=== PATIENT | male | born 1940 | race Caucasian/White ===

== ENCOUNTER 2016-10-01 18:35 | Observation (INO) | payer MEDICARE, BC ==
[~2016-10-01] VITALS: Ht 189.2 cm; Wt 126.1 kg
--- NOTE | ~2016-10-01 | OP ---
PATIENT NAME: AHSLY DUGAN MEDICAL RECORD: [id number] :38 LOCATION:D. D.2121 ADMISSION DATE:10/01/16 SURGEON: DELILAH EL MD DATE OF OPERATION: 10/03/2016 PROCEDURES: 1. Left heart catheterization. 2. Selective coronary angiography. 3. Left ventriculogram. INDICATION: Elevated troponin and chest pain. Initially planned for cardiac catheterization yesterday; however, the patient did not think he could lie flat with his CPAP and anesthesia per anesthesia, the patient was able to lie flat and tolerate the cardiac catheterization. FINDINGS: Left ventriculogram was performed in the standard 30-degree BEJARANO view reveals good cardiac wall motion throughout all segments. Overall ejection fraction estimated at 55%. SELECTIVE CORONARY ANGIOGRAPHY: Left main, left anterior descending, left circumflex, right coronary are smooth-walled vessels with no angiographic evidence of coronary artery disease. OVERALL IMPRESSION: 1. No angiographic evidence of coronary artery disease. 2. Normal LV function. Most likely, his symptomatology is secondary to recurrent pulmonary emboli. We will center medical management on treatment of the pulmonary emboli. TRANSINT:[id number] Voice Confirmation ID: [id number] DOCUMENT ID: [id number] DELILAH EL MD CC: [id number] DICTATION DATE: 10/03/16 1312 PATROL DRIVER: 10/03/162022 DIS IN 10/03/16 [facility] [address] [place] [address]
--- NOTE | ~2016-10-01 | DS ---
PATIENT:ASHLY ROBLERO :36 MEDICAL RECORD: [id number] DISCHARGE SUMMARY ADMISSION DATE: 10/01/16 DISCHARGE DATE: 10/03/16 DATE OF SERVICE: 10/03/2016 DIAGNOSES: 1. Chest pain. 2. Increased troponin. 3. History of pulmonary embolus. 4. Shortness of breath, dyspnea on exertion secondary to pulmonary embolus. 5. Peripheral edema secondary to pulmonary hypertension secondary to pulmonary embolus. 6. Hypertension. HOSPITAL COURSE: Mr. Roblero presents with increased shortness of breath. He has a history of saddle embolus with significant pulmonary embolus approximately a year ago. Since then, he has been very short of breath. He did have worsening of his shortness of breath. His troponin was mildly elevated. I send him here for cardiac evaluation. We planned cardiac catheterization; however, he cannot lay flat, not even elevated secondary to his pulmonary embolus and shortness of breath. He is on a CPAP machine, even with a CPAP machine, he was unable to lie flat for CT angio or for cardiac catheterization. At this time, we will treat him empirically. We will continue his Eliquis. Continue his home meds for the pulmonary embolus and plan for further cardiac evaluation as an outpatient, but due to his inability to lie flat, that will only be medical management. TRANSINT:[id number] Voice Confirmation ID: [id number] DOCUMENT ID: [id number] DELILAH EL MD CC: [id number] DICTATION DATE: 10/03/16816 BEHAVIORAL HEALTH COUNSELOR: 10/04/16 0151 DIS IN 10/03/16 [id number] [place] [address]
--- NOTE | ~2016-10-01 | HEMODYNAMI ---
PATIENT:ASHLY DUGAN MEDICAL RECORD: [id number] : 38 [facility] D[id number] ADMISSION DATE: 10/01/16 Generatedon:10/03/201613:18 Patient name: ASHLY DUGAN Patient #: [id number] : 1940 Date of study: 10/03/2016 Page: Of Hemodynamic Procedure Report Patient Data Patient Demographics Procedure consent was obtained First Name: ASHLY Gender: Male Last Name: KAILEE : 1940 Middle Initial: W Age: 75 year(s) Patient #: [id number] Race: SSN: [id number] Additional ID: [id number] Contact details Address: [address] [address] State: [place] City: [place] Zip code: [address] Past Medical History Allergies: No known allergies Admission Admission Data Admission Date: 10/01/2016 Admission Time: 18:35 Arrival Date: 10/01/2016 Arrival Time: 18:35 Admit Source: Other Insurance Payor: Medicare Room #: D.2122 Weight (lbs.): 275 Weight (kg.): 124.74 Lab Results Lab Result Date: 10/03/2016 Lab Result Time: 0:00 Biochemistry Name Units Result Min Max BUN mg/dl 31 --(----)-* 7 18 Creatinine mg/dl 1 --(--*-)-- 0.6 1.3 CBC Name Units Result Min Max Hemoglobin g/dl 14.2 --(*---)-- 13.5 17.5 Procedure Procedure Types Cath Procedure Diagnostic Procedure C [facility] w/Coronaries Miscellaneous Procedures Moderate Sedation up to 15 minutes Procedure Description Procedure Date Procedure Date: 10/03/2016 Procedure Start Time: 12:58 Procedure End Time: 13:11 Procedure Staff Name Function Calixto Mendes MD Performing Physician Brenda Capone RT Scrub Sarah Smith RN Nurse Maribel Thomson RT Monitor Procedure Data Cath Procedure Fluoroscopy Diagnostic fluoroscopy Total fluoroscopy Time: 2.6 time: 2.6 min min Diagnostic fluoroscopy Total fluoroscopy dose: 677 dose: 677 mGy mGy Contrast Material Contrast Material Type Amount (ml) Isovue 370 0 Entry Location Entry Primary Successful Side Size Upsize Upsize Entry Closure Succes sful Closure Location (Fr) 1 (Fr) 2 (Fr) Remarks Device Remarks Radial Right 6 Fr artery Short Femoral Right 5 Fr Exoseal artery Estimated blood loss: 5 ml Diagnostic catheters Device Type Used For End Catheter Placement Terumo Optitorque 5Fr Multi-vessel [place]els[place] 4.5 catheter Angiography Procedure Complications No complications Procedure Medications Medication Administration Route Dosage Oxygen Lidocaine 2% added to field 20 Heparin Flush Bag added to field 2 bags (1000units/500ml NS) 0.9% NaCl I.V. 50 ml/hr Refer to Anesthesia Notes for Sedation Medications Radial Cocktail I.A. 1 syringe (Verapomil 2mg/Nitro 400mcg/Heparin 1500units) Hemodynamics Rest HGB: 14.2 (g/dl) Heart Rate: 60 (bpm) Pressure Samples Time Site Value (mmHg) Purpose Heart Use Rate(bpm) 13:03 LV 99/31,32 Snapshot 61 Snapshots Pre Cath Intra NCS Post Cath Vital Signs Time Heart Resp SPO2 etCO2 [id number] NIBP (mmHg) Rhythm Pain Sedatio n Rate (ipm) (%) (mmHg) (mmHg) Status Level (bpm) 12:50:11 60 16 97 0 0 No Cuff NSR 0 (11) 9(A) , No pain 12:54:14 60 15 95 0 0 161/138(153) NSR 0 (11) 9(A) , No pain 12:58:24 63 19 97 0 0 145/125(136) NSR 0 (11) 9(A) , No pain 13:02:34 62 25 100 0 0 119/79(98) NSR 0 (11) 8(A) , No pain 13:06:38 60 20 97 0 0 113/68(85) NSR 0 (11) 7(A) , No pain 13:10:35 60 19 100 0 0 128/79(97) NSR 0 (11) 8(A) , No pain 13:13:56 60 19 99 0 0 133/84(95) NSR 0 (11) 9(A) , No pain Medications Time Medication Route Dose Verified Delivered Reason Notes Effectiveness by by 12:51:23 Oxygen cpap Calixto Smith Per Vaughn Smith RN physician 12:54:30 Lidocaine 2% added 20ml Calixto De Luna for local to vial Vaughn Mendes MD anesthetic field 12:54:37 Heparin Flush added 2 bags Calixto De Luna used for Bag to Vaughn Mendes MD procedure (1000units/500ml field NS) 12:54:59 0.9% NaCl I.V. 50 Calixto Smith Per ml/hr Vaughn Smith RN physician 12:55:06 Refer to Calixto Smith Anesthesia Notes Vaughn Smith RN for Sedation Medications 12:59:00 Radial Cocktail I.A. 1 Calixto De Luna for (Verapomil syringe Vaughn Mendes MD vasodilation 2mg/Nitro 400mcg/Heparin 1500units) Procedure Log Time Note 12:16:08 Lab Result : BUN 31 mg/dl 12:16:08 Lab Result : Hemoglobin 14.2 g/dl 12:16:08 Lab Result : Creatinine 1 mg/dl 12:16:20 Diagnostic Cath Status : Elective 12:16:40 Sarah Smith RN sent for patient. Start room use. 12:16:41 Time tracking: Regular hours 12:17:41 Plan of Care:Hemodynamics will remain stable., Cardiac rhythm will remain stable., Comfort level will be maintained., Respiratory function will remain adequate., Patient/ family verbilizes understanding of procedure., Procedure tolerated without complication., Recovers from procedure without complications.. 12:18:37 Informed consent obtained and on chart 12:30:24 Patient received from Med II to CCL 1 Alert and oriented. Tansferred to table in Supine position. 12:30:25 Warm blankets applied, and leela hugger turned on for patient comfort. 12:30:26 Correct patient and procedure confirmed by team. 12:30:27 ECG and BP/O2 sat monitors applied to patient. 12:38:57 H&P Date Dictated: 10/01/2016 Within 30 days and on chart., H&P Addendum completed by physician on day of procedure. (MUST COMPLETE FOR ALL OUTPATIENTS). 12:39:00 Pre-procedure instructions explained to patient. 12:39:04 Family in patients room. 12:39:07 Patient NPO since Midnight. 12:39:15 Patient allergic to No known allergies 12:39:19 Is the patient allergic to Iodine/contrast media? No. 12:40:42 Sleep apnea? Yes 12:41:08 Airway obstruction? Yes Asthma, COPD 12:43:38 Patient diabetic? No. 12:43:42 Previous problem with sedation/anesthesia? Yes ? 12:43:45 Previous problem with sedation/anesthesia? No ? 12:43:47 Snore? Yes 12:44:05 IV started by Sarah Smith RN inleft hand with a 20 gauge IV catheter with 0.9% NaCl at KVO. 12:44:13 Lab results completed and on chart. 12:44:18 Right Radial & Right Groin area was prepped with chlora-prep and draped in sterile fashion 12:44:21 Sharps counted by scrub and verified by R.N. 12:44:23 Physician paged 12:49:21 Vital chart was started 12:51:23 Oxygen cpap was administered by Sarah Smith RN; Per physician; 12:53:04 Baseline sample Acquired. 12:54:30 Lidocaine 2% 20ml vial added to field was administered by Calixto Mendes MD; for local anesthetic; 12:54:37 Heparin Flush Bag (1000units/500ml NS) 2 bags added to field was administered by Calixto Mendes MD; used for procedure; 12:54:47 Physician arrived 12:54:47 --------ALL STOP TIME OUT------ 12:54:48 Final Timeout: patient, procedure, and site verified with staff and physician. All members of the team are in agreement. 12:54:49 Right Radial & Right Groin site verified by team. 12:54:58 Physical assessment completed. ASA score P 2 - A patient with mild systemic disease as per Calixto Mendes MD. 12:54:59 0.9% NaCl 50 ml/hr I.V. was administered by Sarah Smith RN; Per physician; 12:55:02 Sedation plan: IV Moderate Sedation Versed, Fentanyl 12:55:06 Refer to Anesthesia Notes for Sedation Medications was administered by Sarah Smith RN; ; 12:58:17 Use device set Radial Dx 12:58:18 Acist Syringe opened to sterile field. 12:58:18 Medline Cath Pack opened to sterile field. 12:58:19 Bag Decanter opened to sterile field. 12:58:19 Terumo 6Fr Slender Glidesheath opened to sterile field. 12:58:19 St Dylan 260cm J .035 wire opened to sterile field. 12:58:20 Acist Hand Control opened to sterile field. 12:58:20 Acist Manifold opened to sterile field. 12:58:21 Tegaderm 4 x 4 opened to sterile field. 12:58:21 MBrace Wrist Support opened to sterile field. 12:58:24 Procedure started. 12:58:24 Full Disclosure recording started 12:58:28 Local anesthetic to right radial artery with Lidocaine 2% by Calixto Mendes MD.INITIAL ACCESS ONLY 12:58:38 A 6 Fr Short sheath was inserted into the Right Radial artery 12:59:00 Radial Cocktail (Verapomil 2mg/Nitro 400mcg/Heparin 1500units) 1 syringe I.A. was administered by Calixto Mendes MD; for vasodilation; 12:59:59 A Terumo Optitorque 5Fr Nelsonia 4.5 catheter was advanced over the wire and used for Multi-vessel Angiography. 13:00:06 Zero performed for pressure channel P1 13:00:13 Zero performed for pressure channel P1 13:00:28 Zero performed for pressure channel P1 13:00:36 Zero performed for pressure channel P1 13:01:30 Zero performed for pressure channel P1 13:01:35 Zero performed for pressure channel P1 13:01:45 Zero performed for pressure channel P1 13:02:18 Local anesthetic to right femoral artery with Lidocaine 2% by Calixto Mendes MD.ADDITIONAL ACCESS 13:02:28 Terumo 5Fr [place] Sheath opened to sterile field. 13:02:39 Catheter removed. 13:02:54 A 5 Fr sheath was inserted into the Right Femoral artery 13:03:03 Diagnostic Infinity 5Fr Multipack catheter opened to sterile field. 13:03:10 5 Fr pig guide catheter was inserted over the wire 13:04:03 LV hemodynamics recorded. 13:04:05 LV gram done using BEJARANO 13:04:09 EF : 55 % 13:04:13 Catheter removed. 13:04:19 5 Fr jl 4 guide catheter was inserted over the wire 13:05:10 Catheter removed. unable to cannulate vessel. 13:06:07 Medtronic Launcher 6Fr JL 6.0 guide catheter opened to sterile field. 13:06:33 5 Fr jl6 guide catheter was inserted over the wire 13:07:20 LCA angiography performed. 13:07:23 Injector settings: Ml/sec: 3, Volume: 6, 13:07:34 Catheter removed. 13:07:47 5 Fr 3drc guide catheter was inserted over the wire 13:07:51 RCA angiography performed. 13:07:54 Injector settings: Ml/sec: 3, Volume: 6, 13:08:09 Catheter removed. 13:08:45 Cordis 5Fr Exoseal opened to sterile field. 13:08:58 Sheath removed intact; hemostasis achieved with Exoseal to the Right Femoral artery. 13:09:07 Procedure ended.(Physican Out) 13:09:44 Fluoroscopy time 02.60 minutes. 13:09:50 Fluoroscopy dose: 677 mGy 13:09:50 Flurop Dose total: 677 13:10:18 Contrast amount:Isovue 370 0ml. 13:10:20 Sharps counted by scrub and verified by R.N. 13:10:24 TR band inflated with 10cc of air. 13:10:26 Insertion/operative site no bleeding no hematoma. 13:10:30 Post-op/insertion site Right Femoral artery dressed using a 4 x 4 and Tegaderm. 13:10:32 Post right femoral artery:stable 13:10:35 Post Procedure Pulses reassessed and unchanged 13:10:39 Post procedure rhythm: unchanged. 13:10:42 Estimated blood loss: 5 ml 13:10:44 Post procedure instruction explained to patient.Patient verbalizes understanding. 13:10:45 Patient needs reinforcement of post procedure teaching. 13:11:03 Procedure type changed to Cath procedure, Diagnostic procedure, LHC, LHC w/Coronaries, Miscellaneous Procedures, Moderate Sedation up to 15 minutes 13:11:04 Procedure and supply charges have been captured, reviewed, submitted and are correct. 13:11:09 Procedure Complication : No complications 13:11:29 Vital chart was stopped 13:11:30 See physician's report for complete and final results. 13:11:38 Report given to [facility]. 13:11:41 Patient transfered to [facility] with Stretcher. 13:11:43 Procedure ended. 13:11:43 Full Disclosure recording stopped 13:11:46 End room use (Document Last) 13:12:37 Patient Weight : 275 kg Device Usage Item Name Manufacture Quantity Catalog Hospital Part Current Minimal Lot# / Number Charge Number Stock Stock Serial# Code Acist Acist 1 65844 851778 937475 452790 20 Syringe Medical Systems Inc Medline Cardinal 1 [id number] 616150 73171 278264 5 Cath Pack Health Bag Microtek 1 2001S 180217 57861 727352 5 Decanter Medical Inc. Terumo 6Fr Terumo 1 [id number] 833729 906772 070796 [address] St Dylan 1 617650 373571 075749 520630 30 260cm J .035 wire Acist Hand Acist 1 23889 588940 490856 768804 5 Control Medical Systems Inc Acist Acist 1 11853 536314 651859 782061 5 Manifold Medical Systems Inc Tegaderm 4 3M 1 1626W 326722 772941 603295 5 x 4 MBrace Advanced 1 140-0250-00 199700 00493 395773 5 Wrist Vascular Support Dynamics Terumo Terumo 1 64-9027 075455 751420 954666 5 Optitorque 5Fr Nelsonia 4.5 catheter Terumo 5Fr Terumo 1 BIY483 130632 186614 034335 40 [place] Sheath Diagnostic Cardinal 1 LD9463 587848 31372 030260 30 Infinity Health 5Fr Multipack catheter Medtronic Medtronic 1 [id number] 006302 75781 092275 0 Launcher 6Fr JL 6.0 guide catheter Cordis 5Fr Cardinal 1 EX500 579795 747502 899414 10 FindThatCourse Signature Audit [place] Stage Time Signature Unsigned Intra-Procedure 10/03/2016 Brenda Liborio 1:18:04 PM RT(R) Signatures Monitor : Maribel Thomson Signature : RT Date : Time : [facility] [address] [place] [address]
--- NOTE | ~2016-10-01 | CN ---
PATIENT NAME:ASHLY DUGAN MEDICAL RECORD: [id number] : 36 LOCATION:[facility] D.2122 ADMIT DATE: 10/01/16 ACCOUNT: [id number] CONSULTING PHYSICIAN: LEAH TORRES MD REFERRING PHYSICIAN: DELILAH MENDES MD DATE OF CONSULTATION: 10/03/2016 CONSULT REQUESTING PHYSICIAN: Delilah Mendes MD. REASON FOR CONSULTATION: Dyspnea and COPD. HISTORY OF PRESENT ILLNESS: Mr. Dugan is a 75-year-old gentleman, very well known to me. The patient was admitted with a left-sided chest pain. He was having shortness of breath with mild exertion. Denies any fever and chills, cough without sputum production. He also has chronic swelling of the lower extremities. The patient, in March, he had a saddle embolus, since then, he is on Eliquis. REVIEW OF SYSTEMS: Mainly in the history of present illness. PAST MEDICAL HISTORY: 1. COPD. 2. Obstructive sleep apnea. 3. Chronic dependent lower extremity edema. 4. Congestive heart failure, chronic diastolic dysfunction. 5. Hypertension. 6. History of coronary artery disease. 7. Obstructive sleep apnea. The patient is very compliant with his BiPAP. PAST SURGICAL HISTORY: None significant. ALLERGIES: There are no known drug allergies. PRESENT MEDICATIONS: He is on Eliquis. He is on albuterol/ipratropium nebulizer. His other medication is reviewed. PERSONAL AND SOCIAL HISTORY: The patient is an ex-smoker. He is a nondrinker. FAMILY HISTORY: Noncontributory. PHYSICAL EXAMINATION: GENERAL: Now, the patient is lying comfortably in bed. He is not in acute distress. He is wearing his BiPAP Trilogy machine. VITAL SIGNS: The blood pressure is 140/82, pulse is 60, respirations 18, temperature is 97.5 and SpO2 is 98% on 6 liters nasal cannula. HEENT: Conjunctivae is pink, sclerae nonicteric. NECK: Supple. There is elevated JVD. CHEST: The chest excursion is minimal on the left side. There are crackle. HEART: Rhythm regular, normal sounds. Heart sounds is a bit distant. ABDOMEN: Soft, bowel sounds present. No hepatosplenomegaly. RECTAL: Deferred. EXTREMITIES: No cyanosis and no clubbing. There is 2+ pedal edema. CENTRAL NERVOUS SYSTEM: The patient is awake and alert. There are no obvious cranial nerve abnormalities. The gait was not tested. CONSULT REPORT [id number] ASHLY DUGAN LABORATORY DATA: CBC: The WBC is 7.3, hemoglobin 14.2, hematocrit 45.4 and the platelet count is 155. Chemistry: Sodium 139 potassium is 4.4, BUN is 31, creatinine is 1 and glucose is 125. The troponin is 0.10. The proBNP is 7317. Chest radiograph, elevated left hemidiaphragm or possible infiltrate associated with atelectasis in the left lower lobe. IMPRESSION: 1. Zarjc-bi-ftpales hypoxic respiratory failure. 2. Congestive heart failure with elevated BNP consistent with diastolic dysfunction. 3. Chronic obstructive pulmonary disease. 4. Coronary artery disease with acute myocardial infarction with elevated cardiac enzymes. 5. History of pulmonary embolism, saddle embolus in March 2016. 6. Obstructive sleep apnea on BiPAP Trilogy. 7. Paralysis of the left hemidiaphragm. 8. Dependent edema. 9. Pulmonary edema with elevated proBNP. 10. Possible pneumonia, atelectasis in left lower lobe. RECOMMENDATION: 1. We will get the CTA of the chest. 2. Get cardiac catheterization today. 3. Start on albuterol/ipratropium nebulizer. Start on Brovana and budesonide nebulizer. 4. Start on empiric Rocephin. 5. Continue the BiPAP Trilogy at the present settings. 6. Lasix 40 mg daily. 7. Further recommendation after the cardiac catheterization and the CTA of the chest. Dr. Mendes, once again thank you for involving me in the care of Mr. Dugan. The critical care time was 45 minutes. TRANSINT:[id number] Voice Confirmation ID: [id number] DOCUMENT ID: [id number] LEAH TORRES MD CC: DELILAH MENDES MD [id number] DICTATION DATE: 10/03/16 1318 PASTING INSPECTOR: 10/03/162102 DIS IN 10/03/16 [facility] [address] [id number]
[~2016-10-01 18:35] MED LIST: CLARITIN 10 MG10 MG PO; COREG 3.1253.125 MG PO; COZAAR50 MG; COZAAR50 MG PO; LASIX40 MG PO; MELOXICAM PO; PROVENTIL HFA6.7 GM INH
--- NOTE | 2016-10-01 19:00 | NUR ---
RECEIVED REPORT AND ASSUMED PT CARE FROM DAY SHIFT NURSE. ADMISSION ASSESSMENT AND HISTORY COMPLETED, VSS, AFEBRILE. RESP EVEN AND UNLABORED. TELEMETRY ON. UNIT ROUTINE AND PROTOCOLS DISCUSSED WITH PT AND HIS FAMILY. JACOBSON DRAINS CLEAR YELLOW URINE TO BSD. CALL LIGHT PLACED WITHIN REACH. WILL CONT TO MONITOR.
[2016-10-01] MEDS ORDERED: IPRAT-ALBUT 0.5-3 ML UPD (20:14)
[2016-10-01 20:28] VITALS: BP 135/88
[2016-10-01] MEDS ORDERED: METOLAZONE2.5 MG PO (20:44)
[2016-10-01] MEDS ORDERED: ELIQUIS5 MG PO (20:44)
[2016-10-01 23:02] VITALS: BMI 35.3
[2016-10-01 23:54] VITALS: BP 146/95
[2016-10-02 04:05] VITALS: BP 137/94
--- NOTE | 2016-10-02 07:54 | NUR ---
UP ON SIDE OF BED. DENIES ANY NEEDS. TELEMERTY SHOWS PACED RHYTHM AT 63. O2 AT 2 L/M PER NC. RIGHT AC SL. JACOBSON CATH TO GRAVITY BAG.SWELLING TO BOTH ANKLES. AWAITING DR. HSIEH UP WITH CALL LIGHT IN REACH
[2016-10-02 08:02] VITALS: BP 169/103
[2016-10-02 09:14] LABS: CHOL - HDL RATIO 3.2 ratio (2.3-4.9); LDL-HDL RATIO 1.9 ratio (1.5-3.5)
--- NOTE | 2016-10-02 09:42 | NUR ---
SITTING ON SIDE OF BED AAOX4 RESP UNLABORED DENIES ANY NEEDS OR DISCOMFORT NAD NOTED
--- NOTE | 2016-10-02 11:34 | NUR ---
DENIES ANY NEEDS. LYING QUIETLY. TELEMERTY SHOWS PACED RHYTHM
[2016-10-02 11:43] VITALS: BP 139/89
[2016-10-02 13:04] VITALS: Ht 189.2 cm; Wt 126.1 kg
--- NOTE | 2016-10-02 14:18 | NUR ---
UP IN BEDSIDE CHAIR. DENIES ANY NEEDS. CALL LIGHT IN REACH WITH SR UP. TELEMERTY SHOWS PACED RHYRHM
[2016-10-02 16:35] VITALS: BP 107/67
--- NOTE | 2016-10-02 16:44 | NUR ---
SCD'S ON BILATERAL LE
--- NOTE | 2016-10-02 17:01 | NUR ---
SCDS PLACED ON PT. INSTRUCTED TO CALL NURSE WHEN HE NEEDS TO GET UP. TELEMERTY SHOWS SR. FAMILY AT BEDSIDE
--- NOTE | 2016-10-02 19:00 | NUR ---
INITIAL ROUNDS MADE. PT SITTING UP ON SIDE OF BED WITH FAMILY IN ROOM. PT USING BIPAP AT THIS TIME. REQUESTING BREATHING TREATMENT, RT NOTIFIED. JACOBSON TO GRAVITY. CALL LIGHT IN REACH. WILL CONT TO MONITOR.
[2016-10-02 19:17] LABS: BASOPHILS 0 % (0-2); EOSINOPHILS 0.5 % (0-7); HEMATOCRIT 45.4 % (42.0-54.0); HEMOGLOBIN 14.2 g/dL (13.5-17.5); IMMATURE GRANULOCYTES 0.5 % (0-5); LYMPHOCYTES 12.4 % (15-50); MCHC 31.3 g/dL (31.0-37.0); MCV 95.8 fL (80.0-100.0); MEAN PLATELET VOLUME 10.1 fL (7.4-10.4); MONOCYTES 16.4 % (2-11); NEUTROPHILS 70.2 % (40-80); PLATELET COUNT 155 10x3/uL (130-400); RBC 4.74 10x6/uL (4.20-6.10); RDW 15.9 % (11.5-14.5); WBC 7.3 10x3/uL (4.8-10.8)
[2016-10-02 20:02] LABS: ALBUMIN 3.2 g/dL (3.4-5.0); ALKALINE PHOSPHATASE 82 U/L (46-116); ALT (SGPT) 60 U/L (10-68); BILIRUBIN - TOTAL 0.49 mg/dL (0.2-1.3); CALC OSMOLALITY 285 mosm/kg (275-300); CALCIUM 8.6 mg/dL (8.5-10.1); CHLORIDE - SERUM 103 mmol/L (98-107); GLUCOSE 125 mg/dL (74-106); POTASSIUM - SERUM 4.4 mmol/L (3.5-5.1); PRO BNP 7317 pg/mL (0-450); PROTEIN - SERUM 6.3 g/dL (6.4-8.2); SODIUM 139 mmol/L (136-145); UREA NITROGEN 31 mg/dL (7-18); eGFR NON AFRICAN AMERICAN 77 mL/min (90-120)
[2016-10-02 20:29] VITALS: BP 144/94
[2016-10-03 00:10] VITALS: BP 111/61
--- NOTE | 2016-10-03 03:31 | NUR ---
SHOP DIRECTOR AT BEDSIDE FOR VS. NEEDS ADDRESSED AT THIS TIME. CALL LIGHT IN REACH. WILL CONT TO MONITOR.
[2016-10-03 05:28] VITALS: BP 120/62
--- NOTE | 2016-10-03 06:29 | NUR ---
RESTING WELL WITH EYES CLOSED, CONT TO MONITOR.
--- NOTE | 2016-10-03 07:20 | NUR ---
ASSESSMENT DONE. DENIES NEEDS
[2016-10-03 07:53] VITALS: BP 142/86
--- NOTE | 2016-10-03 07:57 | PN ---
PATIENT:ASHLY ROBLERO MEDICAL RECORD: [id number] LOCATION:D. D.212 ADMISSION DATE: 10/01/16 PROGRESS NOTE DATE OF SERVICE: 10/02/2016 Mr. Roblero definitely had a change in his symptomatology ____, might be cardiac, but he could not lie flat, could not even lie at 45 degrees with his CPAP on; hence, cardiac catheterization is not an option for evaluation. We will have pulmonary see him, but he could not lie flat still last night for CAT scan in [place], so I do not think repeat CTA is a good option. We will only have to treat him empirically, we will see if pulmonary has anything to add. TRANSINT:[id number] Voice Confirmation ID: [id number] DOCUMENT ID: [id number] DELILAH EL MD at 0757 CC: [id number] DICTATION DATE: 10/02/16 155 EVENT PRODUCER: 10/02/16 1922 ADM IN [facility] [address] [place] [address]
--- NOTE | 2016-10-03 07:57 | HP ---
PATIENT: ASHLY ROBLERO MEDICAL RECORD: [id number] ACCOUNT: [id number] LOCATION:[address] : 36 ADMISSION DATE: 10/01/16 HISTORY AND PHYSICAL EXAMINATION ADMITTING DIAGNOSES: 1. Chest pain compatible with angina. 2. Elevated troponin. 3. History of pulmonary embolus approximately 1 year ago. 4. Eliquis anticoagulation for pulmonary embolus. 5. Chronic NSAID therapy, meloxicam. 6. Hypertension. HISTORY OF PRESENT ILLNESS: Mr. Roblero presents with chest pain, has a history of pulmonary embolus. He has a history of atrial fibrillation. He did not feel the atrial fibrillation with the chest pain. He felt chest pain was different from that of his pulmonary embolus, it was on the left side of the chest. It was more of a dull aching sensation, worsened pulmonary embolus pain was more of a sharp pleuritic type pain, has been having that for the past 2 days. His troponin was increased at [facility] and he was sent here for further cardiac workup. He had a cardiac catheterization in 2007, but has not ever had any cardiac stents or bypass. He had mild to moderate disease at that time. PHYSICAL EXAMINATION: GENERAL APPEARANCE: Well-nourished, well-developed, appears stated age. Level of distress, comfortable. PSYCHIATRIC: Mental status, alert, normal affect. Orientation, oriented to time, place and person. EYES: Lids and conjunctiva, noninjected. No discharge, no pallor. ENT: Lips, teeth, gums, normal dentition. Oropharynx, no cyanosis, no pallor. NECK: Carotid arteries, bilateral normal upstroke, no bruits, no thrills. JUGULAR VEINS: No jugular venous pressure or distention. CERVICAL LYMPH NODES: Nontender, nonenlarged. THYROID: Not enlarged. Nontender. No nodules. LUNGS: Respiratory effort, unlabored. CHEST: Normal curvature. No thoracic deformity. No chest wall tenderness. Percussion, resonant. Auscultation, clear. No wheezes, no rales, no rhonchi. CARDIOVASCULAR: Precordial exam, nondisplaced. No heaves or pericardial thrills. Rate and rhythm, regular. Heart sounds, normal S1, normal S2. No S3, no gallop, no rub. Systolic murmur, not heard. Diastolic murmur, not heard. EXTREMITIES: No cyanosis, no edema. Peripheral pulses, full and equal in all extremities, except as noted. No bruits appreciated. ABDOMEN: Soft, nondistended. Normal aorta. No bruit. Nontender. No masses. Liver, nontender, no hepatomegaly. Spleen, nontender, no splenomegaly. MUSCULOSKELETAL: No joint tenderness. No joint swelling. No erythema. NEUROLOGICAL: Normal gait, normal strength, normal tone. SKIN: Warm and dry. REVIEW OF SYSTEMS: The patient reports easy bruising but reports no swollen glands. The patient reports no fever, no night sweats, no significant weight gain, no significant weight loss. No significant exercise tolerance. The patient reports no dry eyes, no irritation, no vision change. Patient reports no difficulty hearing and no ear pain. Patient reports no frequent nose bleeds or nose and sinus problems. Patient reports on arm pain on exertion. No HISTORY AND PHYSICAL [id number] ROBLERO,ASHLY W shortness of breath while lying down. No history of heart murmur. Patient reports no cough, no wheezing or coughing up blood. Patient reports no abdominal pain, no vomiting. Normal appetite. No diarrhea and not vomiting blood. No nausea and no constipation. Patient reports no incontinence. No difficulty urinating. No hematuria. No increased frequency. Patient reports no muscle aches. No weakness, no arthralgias, no back pain. No swelling of the extremities. Patient reports no abnormal mole, no jaundice, no rashes. Reports no loss of consciousness. No weakness and no numbness. No seizures, dizziness, or headaches. The patient reports no depression, no sleep disturbance, feeling safe in a relationship and no alcohol abuse. Patient reports on fatigue. Reports no runny nose or sinus pressure. No itching, no hives, and no frequent sneezing. Cardiovascular review of systems: Negative for PCI. Negative for heart failure. Negative for coronary bypass graft surgery. Positive for atrial fibrillation. Negative for malignancy. Negative for bleeding problems. Negative for CVA. OVERALL IMPRESSION: Chest discomfort different from that of his pulmonary embolus. He very well may have hemodynamically significant coronary artery disease. We will proceed with coronary angiography. Further care depends upon the findings of the angiography. TRANSINT:[id number] Voice Confirmation ID: [id number] DOCUMENT ID: [id number] DELILAH EL MD at 0757 CC: [id number] DICTATION DATE: 10/02/16919 SEISMIC COMPUTER: 10/02/16 1011 ADM IN [facility] [address] [id number]
--- NOTE | 2016-10-03 09:52 | NUR ---
RESP UL ON . UP TO CHAIR WITHOUT NEEDS. VOICED. WILL CONT. PLAN OF CARE.
[2016-10-03 11:47] VITALS: BP 140/82
--- NOTE | 2016-10-03 13:30 | NUR ---
RECIVED FROM C.O.D. BILLER. TR-BAND TO RT WRIST AND CLEAN DRSG TO RT GROIN PULSE GOOD
--- NOTE | 2016-10-03 15:30 | NUR ---
TR-BAND OFF, RT GROIN DRSG REMAINS CLEAN, WITH PULSE GOOD.
[2016-10-03 15:59] VITALS: BP 137/83
--- NOTE | 2016-10-03 17:01 | NUR ---
DC GIVEN TO PT AND DAUGHTER { MARINA }
--- NOTE | 2016-10-03 17:51 | NUR ---
DC HOME PER PERSONAL CAR
== END 2016-10-03 17:52 | disposition home or self-care (01) ==
LOC: OBSVTIME 18:35 → D.M2 18:35
PROVIDERS: Internal Medicine Pulmonary Disease; ADMIT Internal Medicine Interventional Cardiology
DX: I27.82 Chronic pulmonary embolism (principal); Z79.01 Long term (current) use of anticoagulants; I27.2 Other secondary pulmonary hypertension; R79.89 Other specified abnormal findings of blood chemistry; J96.21 Acute and chronic respiratory failure with hypoxia; J98.11 Atelectasis; I11.0 Hypertensive heart disease with heart failure; I50.32 Chronic diastolic (congestive) heart failure; G47.33 Obstructive sleep apnea (adult) (pediatric); I25.10 Atherosclerotic heart disease of native coronary artery without angina pectoris; Z87.891 Personal history of nicotine dependence

== ENCOUNTER → 2018-03-26 08:40 | Outpatient (CLI) | payer MEDICARE, BC ==
[2016-10-02 13:04] VITALS: BMI 35.2
[~2018-03-26 08:40] MED LIST changes: +ELIQUIS5 MG PO; +IPRAT-ALBUT 0.5-3 ML UPD; +METOLAZONE2.5 MG PO
== END | disposition home or self-care (01) ==
LOC: D.RAD 08:40
DX: R06.02 Shortness of breath (principal); J44.9 Chronic obstructive pulmonary disease, unspecified